=== PATIENT | female | born 1945 | race Two or more races ===

== ENCOUNTER 2025-01-23 15:46 | Inpatient (IN) | payer OTHER ==
[~2025-01-23] VITALS: Ht 152.4 cm; Wt 54.7 kg
[~2025-01-23 15:46] MED LIST: AMLO1TAB22 PO; ATOR20TA50 PO; CLOP75TA70 PO; DAPA1TAB4 PO; GABA-1250 PO; LOSA-534 PO; METF-372 PO; TIRZ2.5I SC
--- NOTE | 2025-01-23 16:28 | ED.PDOC ---
History of Present Illness HPI Comments Ms. Kelly is 79-year-old female with hypertension, diabetes mellitus type 2 for the past 20 years, sick sinus syndrome status post Medtronic pacemaker 2019, paroxysmal AFib status post watchman device 07/2024 who presented to the ER with a chief complaint of chest pain and shortness of breaths for 1 day. Patient has started experiencing left-sided chest pain yesterday while she was walking at home, pressure type, intensity 10/10, nonradiating, associated with sweating, shortness for breath. Also reports shortness of breath for the past 2 weeks on exertion but denies paroxysmal nocturnal dyspnea. She moved from [facility] recently. Switching her employee relations advisor or Dr. Vasquez On arrival to the ER, patient denied chest pain at this time. Blood pressure 116/8 systolic. Bilateral lower extremity pitting edema noted and bilateral crackles heard on auscultation. Past medical history:hypertension, diabetes mellitus type 2 for the past 20 years, sick sinus syndrome status post Medtronic pacemaker 2020, watchman device 07/2024 Home medications: Losartan 50, aspirin Ativan, gabapentin 300 t.i.d., atorvastatin 20, metformin, Farxiga Chief Complaint: Chest Pain Time Seen by MD: 15:48 Allergies: Coded Allergies: NO KNOWN ALLERGIES (Unverified , 01/23/25) Mode of Arrival: Ambulatory Past Medical History PAST MEDICAL HISTORY: DM, High Lipids, HTN Constitutional: reports: diaphoresis EENTM: denies: blurred vision, double vision, ear bleeding, ear discharge, ear drainage, ear pain, ear ringing, eye pain, eye redness, hearing loss, mouth pain, mouth swelling, nasal discharge, nose bleeding, nose congestion, nose pain, photophobia, tearing, throat pain, throat swelling, voice changes, others Respiratory: reports: shortness of breath, SOB with excertion Cardiovascular: reports: chest pain, Dyspnea on exertion, edema Gastrointestinal: denies: abdomen distended, abdominal pain, blood streaked bowels, constipated, diarrhea, dysphagia, difficulty swallowing, hematemesis, melena, nausea, poor appetite, poor fluid intake, rectal bleeding, rectal pain, vomiting, others Genitourinary: denies: abnormal vagina bleeding, burning, dyspareunia, dysuria, flank pain, frequency, hematuria, incontinence, pain, , vagina discharge, urgency, others Neurological: denies: dizziness, fainting, headache, left sided numbness, left sided weakness, numbness, paresthesia, pre-existing deficit, right sided numbness, right sided weakness, seizure, speech problems, tingling, tremors, weakness, others Musculoskeletal: denies: back pain, gout, joint pain, joint swelling, muscle pain, muscle stiffness, neck pain, others Integumetry: denies: bruises, change in color, change in hair/nails, dryness, laceration, lesions, lumps, rash, wounds, others Allergic/Immunocompromised: denies: Difficulty Healing, Frequent Infections, Hives, Itching, others Hematologic/Lymphatic: denies: anemia, blood clots, easy bleeding, easy bruising, swollen glands, others Endocrine: denies: excessive hunger, excessive sweating, excessive thirst, excessive urination, flushing, intolerance to cold, intolerance to heat, unexplained weight gain, unexplained weight loss, others Psychiatric: denies: anxiety, bipolar disorder, depression, hopeless, panic disorder, schizophrenia, sleepless, suicidal, others Physical Exam General Appearance: No Apparent Distress, Normal HEENT: Normal ENT Inspection, Pharynx Normal, TMs Normal Neck: Full Range of Motion, Non-Tender, Normal, Normal Inspection Respiratory: Decreased Breath Sounds Cardiovascular: Gallop/S3, No JVD, No Murmur, Normal Peripheral Pulses, Regular Rate/Rhythm Breast Exam: Deferred Gastrointestinal: No Organomegaly, Non Tender, No Pulsatile Mass, Normal Bowel Sounds, Soft Genitalia: Deferred Pelvic: Deferred Rectal: Deferred Extremities: No calf tenderness, Normal capillary refill, Normal inspection, Normal range of motion, Non-tender, No pedal edema Neurologic: Alert, manager helpdesk II-XII nml as Tested, No Motor Deficits, Normal Affect, Normal Mood, No Sensory Deficits Cerebellar Function: Normal Reflexes: Normal Skin: Dry, Normal Color, Warm Lymphatic: No Adenopathy Was a procedure done? Was a procedure done?: No EKG EKG : Comments irregular with vent rhythm Differential Dx Considerations may include: ACS/musculoskeletal chest pain/pericarditis/CHF X-Ray, Labs, Meds, VS Vital Signs Date Time Temp Pulse Resp B/P (MAP) Pulse Ox O2 Delivery O2 Flow Rate FiO2 01/23/25 19:33 168/83 9/23/25 17:03 158/78 01/23/25 16:49 60 01/23/25 15:51 98.2 67 18 168/166 94 98.2 Lab Test 01/23/25 18:00 01/23/25 16:23 Range/Units Troponin I High Sensitivity 72 *H 80 *H </=34 ng/L White Blood Count 7.0 4.4-10.8 10^3/uL Red Blood Count 3.99 L 4.0-5.20 10^6/uL Hemoglobin 10.2 L 12.2-16.2 g/dL Hematocrit 32.0 L 36.0-46.0 % Mean Corpuscular Volume 80.2 80.0-100.0 fL Mean Corpuscular Hemoglobin 25.5 L 28.0-32.0 pg Mean Corpuscular Hemoglobin Concent 31.8 L 32.0-36.0 g/dL Red Cell Distribution Width 16.3 H 11.8-14.3 % Platelet Count 289 140-450 10^3/uL Mean Platelet Volume 8.4 6.9-10.8 fL Neutrophils (%) (Auto) 72.7 37.0-80.0 % Lymphocytes (%) (Auto) 16.8 10.0-50.0 % Monocytes (%) (Auto) 8.2 0.0-12.0 % Eosinophils (%) (Auto) 1.6 0.0-7.0 % Basophils (%) (Auto) 0.7 0.0-2.0 % Neutrophils # (Auto) 5.1 1.6-8.6 10 ^3/uL Lymphocytes # (Auto) 1.2 0.4-5.4 10 ^3/uL Monocytes # (Auto) 0.6 0-1.3 10 ^3/uL Eosinophils # (Auto) 0.1 0-0.8 10 ^3/uL Basophils # (Auto) 0 0-0.2 10 ^3/uL Nucleated Red Blood Cells 0.0 % Sodium Level 139 136-145 mmol/L Potassium Level 4.5 3.5-5.1 mmol/L Chloride Level 103 98-107 mmol/L Carbon Dioxide Level 27 20-31 mmol/L Anion Gap 9 5-15 Blood Urea Nitrogen 13 9-23 mg/dL Creatinine 1.00 0.550-1.02 mg/dL Glomerular Filtration Rate Calc 57 >90 mL/min BUN/Creatinine Ratio 13.0 10.0-20.0 Serum Glucose 181 H 74-106 mg/dL Calcium Level 9.3 8.7-10.4 mg/dL B-Type Natriuretic Peptide 780.26 0-100 pg/mL Current Medications Medications (Trade) Dose Ordered Sig/Lisa Route Start Time Stop Time Status Last Admin Aspirin 81 mg ONCE ONCE PO 01/23/25 16:15 01/23/25 16:34 DC 01/23/25 17:04 Atorvastatin Calcium (Lipitor) 40 mg ONCE ONCE PO 01/23/25 16:15 01/23/25 16:34 DC 01/23/25 17:04 Clonidine HCl (Catapres Tablet) 0.1 mg ONCE ONCE PO 01/23/25 16:15 01/23/25 16:34 DC 01/23/25 17:03 Time of 1ST Reevaluation: 17:10 Reevaluation 1ST: Unchanged Patient Education/Counseling: Diagnosis, Treatment, Need For Follow Up Family Education/Counseling: Treatment, Need For Follow Up SEPSIS Sepsis Screen Date sepsis recognized/suspect: Jan 23, 2025 Time Sepsis recognized/suspect: 1547 Recent Procedure: No On Antibiotic Therapy: No Respiratory Rate >20: No Heart Rate >90: No Temp<36 C (96.8 F) or >38.3 C: No SBP <90 or MAP <65 mmHG: No New Acute Mental Status Change: No Is the patient on CPAP, BIPAP,: Yes Physician Orders Electrocardigram (01/23/25 16:00) Electrocardigram (01/23/25 17:00) Electrocardigram (01/23/25 19:00) Chest Xray 1 View (01/23/25 16:12) Troponin-I Hs (01/23/25 19:12) Command And Control Systems Integrator (01/23/25 ) Communication Order (01/23/25 16:49) Echo 2d Mode Cardiac Dop (01/23/25 17:14) Strict I & O QSHIFT (01/23/25 17:14) Cardiac Diet-2gna,Lofat,Lochol (01/23/25 Dinner) Aspirin Tablet (01/24/25 10:00) Atorvastatin (Lipitor) (01/23/25 22:00) Losartan Tablet (Cozaar Tablet) (01/24/25 10:00) Gabapentin Capsule (Neurontin Capsule) (01/23/25 22:00) Amlodipine Tablet (Norvasc Tablet) (01/24/25 10:00) Furosemide Tablet (Lasix Tablet) (01/24/25 10:00) Clopidogrel Bisulfate (Plavix) (01/24/25 10:00) * Cardiology Consult (01/23/25 19:35) Basic Metabolic Panel (01/24/25 04:00) Glucose Blood (Accu-Chek Comfort Curve T (01/23/25 22:00) Mild Sliding Scale (01/23/25 22:00) Dextrose 50% Syringe (01/23/25 19:45) Admit (01/23/25 19:35) Ondansetron Hcl (Zofran) (01/23/25 19:45) Enoxaparin Sodium (Lovenox) (01/24/25 10:00) Condition: Fair (01/23/25 19:35) Acetaminophen Tablet (Tylenol Tablet) (01/23/25 19:45) Bedrest With Bathroom Privileg (01/23/25 19:35) Nitroglycerin Sublingual (Ntrostat Subli (01/23/25 19:45) Morphine Sulfate Injection (01/23/25 19:45) Stat Ekg For Chest Pain (01/23/25 19:35) Notify Md Of Changes From Base (01/23/25 19:35) Studio Camera Operator For 24 Hours (01/23/25 19:35) Emergency Dysrhythmia Protocol (01/23/25 19:35) Rhythm Strips Once Every Shift (01/23/25 19:35) Oxygen By Nasal Cannula (01/23/25 19:35) Pumper Gauger Apprentice To Assess Pacemaker (01/23/25 19:40) Vital Signs Date Time Temp Pulse Resp B/P (MAP) Pulse Ox O2 Delivery O2 Flow Rate FiO2 01/23/25 19:33 168/83 01/23/25 17:03 158/78 01/23/25 16:49 60 01/23/25 15:51 98.2 67 18 168/166 94 98.2 Laboratory Tests Test 01/23/25 16:23 White Blood Count 7.0 10^3/uL (4.4-10.8) Medications Medications Dose Ordered Sig/Lisa Route Start Time Stop Time Status Last Admin Dose Admin Aspirin 81 mg ONCE ONCE PO 01/23/25 16:15 01/23/25 16:34 DC 01/23/25 17:04 Atorvastatin Calcium 40 mg ONCE ONCE PO 01/23/25 16:15 01/23/25 16:34 DC 01/23/25 17:04 Clonidine HCl 0.1 mg ONCE ONCE PO 01/23/25 16:15 01/23/25 16:34 DC 01/23/25 17:03 Departure 1 Departure Time of Disposition: 17:10 Impression: Primary Impression: Chest pain Additional Impression: Congestive heart failure Disposition: 30 STILL A PATIENT Admit to: Tele Condition: Fair Critical Care Note Critical Care Time?: No Stability Stability form required: SARAH Holloway RESIDENT Jan 23, 2025 16:28
[2025-01-23 16:34] LABS: Hematocrit 32.0 % (36.0-46.0); Hemoglobin 10.2 g/dL (12.2-16.2); Mean Corpuscular Hemoglobin 25.5 pg (28.0-32.0); Mean Corpuscular Volume 80.2 fL (80.0-100.0); Nucleated Red Blood Cells % 0.0 %
[2025-01-23 16:38] LABS: Chloride 103 mmol/L (98-107); Potassium 4.5 mmol/L (3.5-5.1); Sodium 139 mmol/L (136-145)
[2025-01-23 16:39] LABS: Anion Gap 9 (5-15); Carbon Dioxide 27 mmol/L (20-31)
[2025-01-23 16:40] LABS: Calcium 9.3 mg/dL (8.7-10.4)
[2025-01-23 16:44] LABS: BUN/Creatinine Ratio 13.0 (10.0-20.0); Blood Urea Nitrogen 13 mg/dL (9-23)
[2025-01-23 16:45] LABS: Glucose 181 mg/dL (74-106)
--- NOTE | 2025-01-23 16:52 | DVH ---
CHEST RADIOGRAPH Indication: b/l lower crackles Technique: Single frontal view of the chest was obtained Comparison: None FINDINGS: The cardiac silhouette is enlarged. The lungs demonstrate perihilar airspace opacities. Bibasilar air space opacities. The pulmonary vasculature is prominent.. Small bilateral pleural effusions, right-gr [id number]. There is no pneumothorax. Cardiac recording device. Aortic atherosclerotic disease. Atrial septal occlusion device. IMPRESSION: As above
[2025-01-23] MEDS ORDERED: INSU300I SC (16:58)
[2025-01-23] MEDS: FUROSEMIDE 20 MG/2 ML VIAL IV ONE (17:00)
[2025-01-23] MEDS: ATORVASTATIN 20 MG TAB PO ONE (17:04)
[2025-01-23] MEDS ORDERED: ACETAMINOPHEN 325 MG TAB PO PRN (19:45)
[2025-01-23] MEDS ORDERED: DEXTROSE (50%) 50ML SYRG IV PRN (19:45)
[2025-01-23] MEDS ORDERED: ONDANSETRON HCL 4 MG/2 ML VIAL IV PRN (19:45)
[2025-01-23] MEDS ORDERED: MORPHINE SULFATE INJ 2 MG/ml SYRG IV PRN (19:45)
[2025-01-23] MEDS ORDERED: NITROGLYCERIN 0.4 MG SL TAB SL PRN (19:45)
[2025-01-23 20:39] VITALS: PULSE 60; RESP 18; O2SAT 97
[2025-01-23] MEDS: ATORVASTATIN 20 MG TAB PO SCH (21:13)
[2025-01-23] MEDS: GABAPENTIN 300 MG CAP PO SCH (21:14)
[2025-01-23] MEDS: ACCU-CHEK COMFORT CURVE STRIP VI SCH (21:14)
[2025-01-23] MEDS: InsuLIN REG 1unit/0.01ml Soln (100units/ml) SC SCH (21:16)
--- NOTE | 2025-01-23 21:47 | DVHHP2 ---
History of Present Illness Reason for Visit: Shortness for breath History of Present Illness 79-year-old female presents for evaluation of shortness for breath. Patient reports a two week history of worsening shortness for breath. She states over the past two days she developed substernal dull/pressure-like nonradiating chest pain. Denies nausea or vomiting. No other acute complaints reported. Past Medical History Sick sinus rhythm, hypertension, dyslipidemia, diabetes mellitus Past Surgical History Pacemaker Family History Noncontributory Smoke: No ALCOHOL: none Drugs: None Lives: with Family Review of Systems Review of Systems Review of systems are currently negative otherwise addressed in HPI. Allergies: Coded Allergies: NO KNOWN ALLERGIES (Unverified , 01/23/25) Medications Current Medications Medications Dose Ordered Sig/Lisa Route Start Time Stop Time Status Last Admin Dose Admin Aspirin 162 mg DAILY PO 01/24/25 10:00 Atorvastatin Calcium 40 mg HS PO 01/23/25 22:00 01/23/25 21:13 40 MG Losartan Potassium 50 mg DAILY PO 01/24/25 10:00 Gabapentin 300 mg BID PO 01/23/25 22:00 01/23/25 21:14 300 MG Amlodipine Besylate 5 mg DAILY PO 01/24/25 10:00 Furosemide 40 mg DAILY PO 01/24/25 10:00 Clopidogrel Bisulfate 75 mg DAILY PO 01/24/25 10:00 Diagnostic Test (Pha) 1 strip ACHS 01/23/25 22:00 01/23/25 21:14 1 STRIP Insulin Human Regular ACHS SC 01/23/25 22:00 01/23/25 21:16 4 UNITS Dextrose 50 ml UD PRN IV 01/23/25 19:45 Ondansetron HCl 4 mg Q4HP PRN IV 01/23/25 19:45 Enoxaparin Sodium 40 mg DAILY SC 01/24/25 10:00 Acetaminophen 650 mg Q6HP PRN PO 01/23/25 19:45 Nitroglycerin 0.4 mg Q5MINP PRN SL 01/23/25 19:45 Morphine Sulfate 2 mg Q30M PRN IV 01/23/25 19:45 Exam Vital Signs Vital Signs Date Time Temp Pulse Resp B/P (MAP) Pulse Ox O2 Delivery O2 Flow Rate FiO2 01/23/25 20:39 60 18 97 Room Air* 0 21 01/23/25 19:33 168/83 01/23/25 15:51 98.2 98.2 Exam Gen: 79-year-old female in mild distress Skin: Warm, dry, normal color and texture, no rash. HEENT: Normocephalic atraumatic, mucous membranes moist and pink. Neck: Cervical and supraclavicular nodes normal without enlargement, trachea is midline, thyroid gland is normal without masses. Pulmonary: Clear to auscultation and percussion bilaterally. Cardiac: Regular rate and rhythm. No murmur Abdomen: Soft, nontender, nondistended, bowel sounds present all 4 quadrants, no guarding, no rigidity, no organomegaly. Extremities: No cyanosis, clubbing, no edema Neuro: Cranial nerves II through XII grossly intact, normal affect and speech, no focal motor deficits. Labs/Xrays ORDERING PHYSICIAN: SARAH MARX RESIDENT PROCEDURE(s): CXR1 - CHEST XRAY 1 VIEW REASON: b/l lower crackles ORDER NUMBER(s): [id number], ACCESSION NUMBER(s): [id number] CHEST RADIOGRAPH Indication: b/l lower crackles Technique: Single frontal view of the chest was obtained Comparison: None FINDINGS: The cardiac silhouette is enlarged. The lungs demonstrate perihilar airspace opacities. Bibasilar airspace opacities. The pulmonary vasculature is prominent.. Small bilateral pleural effusions, [id number]. There is no pneumothorax. Cardiac recording device. Aortic atherosclerotic disease. Atrial septal occlusion device. IMPRESSION: As above ATED BY: JACKIE BASHIR MD Labs Test 01/23/25 19:36 01/23/25 16:23 Range/Units Troponin I High Sensitivity 74 *H </=34 ng/L White Blood Count 7.0 4.4-10.8 10^3/uL Red Blood Count 3.99 L 4.0-5.20 10^6/uL Hemoglobin 10.2 L 12.2-16.2 g/dL Hematocrit 32.0 L 36.0-46.0 % Mean Corpuscular Volume 80.2 80.0-100.0 fL Mean Corpuscular Hemoglobin 25.5 L 28.0-32.0 pg Mean Corpuscular Hemoglobin Concent 31.8 L 32.0-36.0 g/dL Red Cell Distribution Width 16.3 H 11.8-14.3 % Platelet Count 289 140-450 10^3/uL Mean Platelet Volume 8.4 6.9-10.8 fL Neutrophils (%) (Auto) 72.7 37.0-80.0 % Lymphocytes (%) (Auto) 16.8 10.0-50.0 % Monocytes (%) (Auto) 8.2 0.0-12.0 % Eosinophils (%) (Auto) 1.6 0.0-7.0 % Basophils (%) (Auto) 0.7 0.0-2.0 % Neutrophils # (Auto) 5.1 1.6-8.6 10 ^3/uL Lymphocytes # (Auto) 1.2 0.4-5.4 10 ^3/uL Monocytes # (Auto) 0.6 0-1.3 10 ^3/uL Eosinophils # (Auto) 0.1 0-0.8 10 ^3/uL Basophils # (Auto) 0 0-0.2 10 ^3/uL Nucleated Red Blood Cells 0.0 % Sodium Level 139 136-145 mmol/L Potassium Level 4.5 3.5-5.1 mmol/L Chloride Level 103 98-107 mmol/L Carbon Dioxide Level 27 20-31 mmol/L Anion Gap 9 5-15 Blood Urea Nitrogen 13 9-23 mg/dL Creatinine 1.00 0.550-1.02 mg/dL Glomerular Filtration Rate Calc 57 >90 mL/min BUN/Creatinine Ratio 13.0 10.0-20.0 Serum Glucose 181 H 74-106 mg/dL Calcium Level 9.3 8.7-10.4 mg/dL B-Type Natriuretic Peptide 780.26 0-100 pg/mL SEPSIS Sepsis Screen Date sepsis recognized/suspect: Jan 23, 2025 Time Sepsis recognized/suspect: 2043 Recent Procedure: No On Antibiotic Therapy: No Respiratory Rate >20: No Heart Rate >90: No Temp<36 C (96.8 F) or >38.3 C: No SBP <90 or MAP <65 mmHG: No New Acute Mental Status Change: No Is the patient on CPAP, BIPAP,: No Physician Orders Electrocardigram (01/23/25 16:00) Electrocardigram (01/23/25 17:00) Electrocardigram (01/23/25 19:00) Chest Xray 1 View (01/23/25 16:12) Finance Executive (01/23/25 ) Communication Order (01/23/25 16:49) Echo 2d Mode Cardiac Dop (01/23/25 17:14) Strict I & O QSHIFT (01/23/25 17:14) Cardiac Diet-2gna,Lofat,Lochol (01/23/25 Dinner) Aspirin Tablet (01/24/25 10:00) Atorvastatin (Lipitor) (01/23/25 22:00) Losartan Tablet (Cozaar Tablet) (01/24/25 10:00) Gabapentin Capsule (Neurontin Capsule) (01/23/25 22:00) Amlodipine Tablet (Norvasc Tablet) (01/24/25 10:00) Furosemide Tablet (Lasix Tablet) (01/24/25 10:00) Clopidogrel Bisulfate (Plavix) (01/24/25 10:00) * Cardiology Consult (01/23/25 19:35) Basic Metabolic Panel (01/24/25 04:00) Glucose Blood (Accu-Chek Comfort Curve T (01/23/25 22:00) Insulin R (Human) (Insulin R) (01/23/25 22:00) Dextrose 50% Syringe (01/23/25 19:45) Admit (01/23/25 19:35) Ondansetron Hcl (Zofran) (01/23/25 19:45) Enoxaparin Sodium (Lovenox) (01/24/25 10:00) Condition: Fair (01/23/25 19:35) Acetaminophen Tablet (Tylenol Tablet) (01/23/25 19:45) Bedrest With Bathroom Privileg (01/23/25 19:35) Nitroglycerin Sublingual (Ntrostat Subli (01/23/25 19:45) Morphine Sulfate Injection (01/23/25 19:45) Stat Ekg For Chest Pain (01/23/25 19:35) Notify Md Of Changes From Base (01/23/25 19:35) Leasing Consultant For 24 Hours (01/23/25 19:35) Emergency Dysrhythmia Protocol (01/23/25 19:35) Rhythm Strips Once Every Shift (01/23/25 19:35) Oxygen By Nasal Cannula (01/23/25 19:35) Wind Site Manager To Assess Pacemaker (01/23/25 19:40) Vital Signs Date Time Temp Pulse Resp B/P (MAP) Pulse Ox O2 Delivery O2 Flow Rate FiO2 01/23/25 20:39 60 18 97 Room Air* 0 21 01/23/25 20:00 64 01/23/25 19:33 168/83 01/23/25 17:03 158/78 01/23/25 17:00 153/58 01/23/25 16:49 60 01/23/25 15:51 98.2 67 18 168/166 94 98.2 Laboratory Tests Test 01/23/25 16:23 White Blood Count 7.0 10^3/uL (4.4-10.8) Medications Medications Dose Ordered Sig/Lisa Route Start Time Stop Time Status Last Admin Dose Admin Aspirin 81 mg ONCE ONCE PO 01/23/25 16:15 01/23/25 16:34 DC 01/23/25 17:04 81 MG Atorvastatin Calcium 40 mg HS PO 01/23/25 22:00 01/23/25 21:13 40 MG Atorvastatin Calcium 40 mg ONCE ONCE PO 01/23/25 16:15 01/23/25 16:34 DC 01/23/25 17:04 40 MG Clonidine HCl 0.1 mg ONCE ONCE PO 01/23/25 16:15 01/23/25 16:34 DC 01/23/25 17:03 0.1 MG Diagnostic Test (Pha) 1 strip ACHS 01/23/25 22:00 01/23/25 21:14 1 STRIP Furosemide 20 mg ONCE ONCE IV 01/23/25 17:00 01/23/25 17:03 DC 01/23/25 17:00 20 MG Gabapentin 300 mg BID PO 01/23/25 22:00 01/23/25 21:14 300 MG Insulin Human Regular ACHS SC 01/23/25 22:00 01/23/25 21:16 4 UNITS Assessment/Plan Assessment/Plan Assessment Chest pain Congestive heart failure Diabetes mellitus Hypertension Plan Admit the patient to telemetry to the hospitalist Cardiology consultation Resume home medications Continue treatment per orders. Plan discussed with: Patient My Orders Orders - MAHNAZ MAYA [email or web address] Procedure Category Date Status Time Aspirin Tablet PHA 01/24/25 In Process 10:00 Atorvastatin (Lipitor) PHA 01/23/25 In Process 22:00 Losartan Tablet PHA 01/24/25 In Process (Cozaar Tablet) 10:00 Gabapentin Capsule PHA 01/23/25 In Process (Neurontin Capsule) 22:00 Amlodipine Tablet PHA 01/24/25 In Process (Norvasc Tablet) 10:00 Furosemide Tablet PHA 01/24/25 In Process (Lasix Tablet) 10:00 Clopidogrel Bisulfate PHA 01/24/25 In Process (Plavix) 10:00 * Cardiology Consult CONS 01/23/25 Transmitted 19:35 Basic Metabolic Panel LAB 01/24/25 Verified 04:00 Glucose Blood PHA 01/23/25 In Process (Accu-Chek Comfort 22:00 Insulin R (Human) PHA 01/23/25 In Process (Insulin R) 22:00 Dextrose 50% Syringe PHA 01/23/25 In Process 19:45 Admit ADMIT 01/23/25 Transmitted 19:35 Ondansetron Hcl PHA 01/23/25 In Process (Zofran) 19:45 Enoxaparin Sodium PHA 01/24/25 In Process (Lovenox) 10:00 Condition: Fair [facility] 01/23/25 In Process 19:35 Acetaminophen Tablet PHA 01/23/25 In Process (Tylenol Tablet) 19:45 Bedrest With Bathroom [facility] 01/23/25 In Process Privileg 19:[address] [facility] 01/23/25 In Process Sublingual (Ntrostat 19:45 Morphine Sulfate PHA 01/23/25 In Process Injection 19:45 Stat Ekg For Chest [facility] 01/23/25 In Process Pain 19:35 Notify Md Of Changes [facility] 01/23/25 In Process From Base 19:35 Leasing Consultant For [facility] 01/23/25 In Process 24 Hours 19:35 Emergency Dysrhythmia [facility] 01/23/25 In Process Protocol 19:35 Rhythm Strips Once [facility] 01/23/25 In Process Every Shift 19:35 Oxygen By Nasal RT 01/23/25 Transmitted Cannula 19:35 Date of Service: Jan 23, 2025 Billing Provider: MAHNAZ MAYA Common Visit Codes: [id number] INP/OBS CARE (HIGH) MAHNAZ MAYA Jan 23, 2025 21:46
[2025-01-24] VITALS (10 sets, daily range): BP systolic 126–159; BP diastolic 70–83; PULSE 58–64; RESP 16–24; TEMP 97.6–98.4; O2SAT 92–97
[2025-01-24 05:53] LABS: Chloride 103 mmol/L (98-107); Sodium 141 mmol/L (136-145)
[2025-01-24 05:54] LABS: Anion Gap 10 (5-15); Calcium 9.1 mg/dL (8.7-10.4); Carbon Dioxide 28 mmol/L (20-31); Potassium 3.3 mmol/L (3.5-5.1)
[2025-01-24 05:59] LABS: BUN/Creatinine Ratio 12.6 (10.0-20.0); Blood Urea Nitrogen 12 mg/dL (9-23); Glucose 106 mg/dL (74-106)
[2025-01-24] MEDS: FUROSEMIDE 40 MG TAB PO SCH (10:18)
[2025-01-24] MEDS: CLOPIDOGREL BISULFATE 75 MG TAB PO SCH (10:19)
[2025-01-24] MEDS: LOSARTAN POTASSIUM 50 MG TAB PO SCH (10:19)
[2025-01-24] MEDS: ENOXAPARIN SOD 40 MG/0.4 ML SYRINGE SC SCH (10:20)
--- NOTE | 2025-01-24 10:59 | DVHINCON2 ---
Date Seen: Jan 24, 2025 Referring Physician MARK Bermudez Reason for Consultation CHF History of Present Illness Pleasant 79-year-old female who presented to the emergency room with a chief complaint of shortness of breath for one week. The patient complains of progressive shortness of breath associated with fatigue, OG, PND, wheezes nature and bilateral lower extremity edema. Denies chest pain, palpitations, diaphoresis, dizziness, or syncopal events. She underwent multiple 12 lead electrocardiogram revealing a ventricular paced rhythm with inferior nonprogressive T-wave inversion and underlying atrial flutter/atrial fibrillation rhythm. Troponin levels peaked at 80 ng/L. The patient is somewhat aware of her cardiac history and used to follow up with the primary cabin cleaner in [place], [place]. She is unsure if she ever underwent coronary work-up in the past. She moved to this area two months ago and is sche duled to establish care with Dr. Vasquez on /2025. Significant past medical history unspecified atrial fibrillation/atrial flutter on Plavix therapy status post Watchman device ([employer]) implanted on , presence of micra-leadless pacemaker implanted on 2019 ([employer]), hypertension, dyslipidemia, and insulin-dependent diabetes mellitus. Past Medical History Past medical history reviewed. No other significant than mentioned above. Past Surgical History Status post micra leadless pacemaker implantation, 2019 Watchman device implantation, Family History Family history reviewed. Social History Denies the use of illicit drugs, alcohol, or tobacco use. Allergies: Coded Allergies: NO KNOWN ALLERGIES (Unverified , 01/23/25) Home Meds Home medications reviewed. Current Medications Current Medications Medications (Trade) Dose Ordered Sig/Lisa Route PRN Reason Start Time Stop Time Status Last Admin Aspirin 162 mg DAILY PO 01/24/25 10:00 Atorvastatin Calcium (Lipitor) 40 mg HS PO 01/23/25 22:00 01/23/25 21:13 Losartan Potassium (Cozaar Tablet) 50 mg DAILY PO 01/24/25 10:00 Gabapentin (Neurontin Capsule) 300 mg BID PO 01/23/25 22:00 01/23/25 21:14 Amlodipine Besylate (Norvasc Tablet) 5 mg DAILY PO 01/24/25 10:00 Furosemide (Lasix Tablet) 40 mg DAILY PO 01/24/25 10:00 Clopidogrel Bisulfate (Plavix) 75 mg DAILY PO 01/24/25 10:00 Diagnostic Test (Pha) (Accu-Chek Comfort Curve T) 1 strip ACHS 01/23/25 22:00 01/24/25 06:20 Insulin Human Regular (InsuLIN R) ACHS SC 01/23/25 22:00 01/23/25 21:16 Dextrose 50 ml UD PRN IV Blood Sugar LESS THAN 60 01/23/25 19:45 Ondansetron HCl (Zofran) 4 mg Q4HP PRN IV NAUSEA / VOMITING 01/23/25 19:45 Enoxaparin Sodium (Lovenox) 40 mg DAILY SC 01/24/25 10:00 Acetaminophen (Tylenol Tablet) 650 mg Q6HP PRN PO PAIN SCALE 1-3 OR TEMP>100.4 01/23/25 19:45 Nitroglycerin (Ntrostat Sublingual) 0.4 mg Q5MINP PRN SL FOR CHEST PAIN 01/23/25 19:45 Morphine Sulfate 2 mg Q30M PRN IV FOR CHEST PAIN 01/23/25 19:45 Review of Systems Constitutional: No symptom reported Ears, Nose, & Throat: No symptom reported Eyes: No symptom reported Neurological: No symptoms reported Pulmonary/Respiratory: SOB, OG, PND Cardiovascular: BLE edema Gastrointestinal: No symptom reported Genitourinary: No symptom reported Musculoskeletal: No symptom reported Skin: No symptom reported Psychiatric: No symptom reported Endocrine: No symptom reported Hemotologic/Lymphatic: No symptom reported Vital Signs Vital Signs Date Time Temp Pulse Resp B/P (MAP) Pulse Ox O2 Delivery O2 Flow Rate FiO2 01/24/25 09:00 97.6 58 16 128/70 (89) 95 97.6 01/24/25 04:36 Room Air* 0 21 Physical Exam General Appearance: Cooperative. Well developed. Well nourished. In no acute distress Head Exam: Normal inspection Neck Exam: Normal inspection. Non-tender. Normal alignment Pulmonary/Respiratory: Chest non-tender. Posterior bilateral breath sounds Cardiovascular/Chest: Irregularly irregular rate and rhythm. Ventricular paced rhythm with underlying AFib/a flutter. No murmurs. No JVD. Peripheral Pulses: 2+ Radial (R). 2+ Radial (L). 2+ Pedal (R). 2+ Pedal (L) Abdominal Exam: Normal bowel sounds. Soft. Nontender. No hepatospenomegaly. No masses Ankle Exam: Positive ankle edema, nonpitting Lower extremities: Positive lower extremity edema, nonpitting Neuro/Mental Status: A&O x4. Coherent Thoughts/Psych: Normal thought pattern. Appropriate mood and affect. Good judgement and insight Appearance: In no acute distress Skin Exam: Normal inspection. Normal color. Warm. Dry Labs/Diagnostic Data Labs Test 01/24/25 05:29 01/24/25 05:09 01/23/25 19:36 01/23/25 16:23 Range/Units Sodium Level 141 136-145 mmol/L Potassium Level 3.3 L 3.5-5.1 mmol/L Chloride Level 103 98-107 mmol/L Carbon Dioxide Level 28 20-31 mmol/L Anion Gap 10 5-15 Blood Urea Nitrogen 12 9-23 mg/dL Creatinine 0.95 0.550-1.02 mg/dL Glomerular Filtration Rate Calc 60 >90 mL/min BUN/Creatinine Ratio 12.6 10.0-20.0 Serum Glucose 106 74-106 mg/dL Calcium Level 9.1 8.7-10.4 mg/dL POC Glucose 102 70-106 mg/dl Troponin I High Sensitivity 74 *H </=34 ng/L White Blood Count 7.0 4.4-10.8 10^3/uL Red Blood Count 3.99 L 4.0-5.20 10^6/uL Hemoglobin 10.2 L 12.2-16.2 g/dL Hematocrit 32.0 L 36.0-46.0 % Mean Corpuscular Volume 80.2 80.0-100.0 fL Mean Corpuscular Hemoglobin 25.5 L 28.0-32.0 pg Mean Corpuscular Hemoglobin Concent 31.8 L 32.0-36.0 g/dL Red Cell Distribution Width 16.3 H 11.8-14.3 % Platelet Count 289 140-450 10^3/uL Mean Platelet Volume 8.4 6.9-10.8 fL Neutrophils (%) (Auto) 72.7 37.0-80.0 % Lymphocytes (%) (Auto) 16.8 10.0-50.0 % Monocytes (%) (Auto) 8.2 0.0-12.0 % Eosinophils (%) (Auto) 1.6 0.0-7.0 % Basophils (%) (Auto) 0.7 0.0-2.0 % Neutrophils # (Auto) 5.1 1.6-8.6 10 ^3/uL Lymphocytes # (Auto) 1.2 0.4-5.4 10 ^3/uL Monocytes # (Auto) 0.6 0-1.3 10 ^3/uL Eosinophils # (Auto) 0.1 0-0.8 10 ^3/uL Basophils # (Auto) 0 0-0.2 10 ^3/uL Nucleated Red Blood Cells 0.0 % B-Type Natriuretic Peptide 780.26 0-100 pg/mL Assessment De Michael decompensated unspecified HF, NYHA Class III NSTEMI, likely type 2 secondary to above Presence of micra leadless pacemaker ([employer]) Status post Watchman device implantation ([employer]) Unspecified atrial fibrillation/atrial flutter, controlled rate (on Plavix therapy) Hypertension Dyslipidemia Insulin-dependent diabetes mellitus Plan/Recommendation (Dr. Lara) We will continue further cardiac evaluation with a transthoracic echocardiogram to rule out structural heart disease. In the meantime, initiate GDMT for unspecified HF and titrate as tolerated. Initiate preload and afterload reduction including strict I&Os, daily weight, fluid restrictions. Continue single-antiplatelet therapy given history of A-fib/A-flutter status post watchman device implantation. Agree with DVT/VTE prophylaxis. Monitor ECG valle ges closely and notify. Thank you for allowing us to participate in this patient's care. Please call if you have any questions or concerns. This medical document was created using an electronic medical record system with voice recognition software and computerized dictation system. Although this document has been carefully reviewed, there might still be some phonetic and typographical errors. Occasional wrong-word or ``sound-alike substitutions may have occurred due to the inherent limitations of voice recognition software. These areas are purely typographical due to imperfections of the software programs and do not reflect any compromise in the patient's medical care. Please read the chart carefully and recognize, using context, where these substitutions have occurred. Plan discussed with: Patient, Other NYHA Physical activity limitations: Class3(Marked) ordinary Date of Service: Jan 24, 2025 Billing Provider: HIEU ANN RECEIVING CHECKER Cardiology Common Codes: [id number] INP/OBS CARE (High) HIEU ANN [facility] Jan 24, 2025 10:59
[2025-01-24] MEDS: FUROSEMIDE 40 MG/4 ML VIAL IV ONE (12:56)
[2025-01-24 13:47] LABS: Magnesium 1.7 mg/dL (1.6-2.6)
--- NOTE | 2025-01-24 13:47 | DVHPN2 ---
Reviewed: Care Plan, H&P, Labs, Medications, Previous Orders, Radiology Changes from previous H/P or p: No Changes Objective Vitals Vital Signs Date Time Temp Pulse Resp B/P (MAP) Pulse Ox O2 Delivery O2 Flow Rate FiO2 01/24/25 12:56 156/82 01/24/25 09:00 97.6 58 16 95 97.6 01/24/25 08:00 Room Air* 0 21 Intake/Output Intake and Output 01/24/25 07:00 Intake Total 0 ml Balance 0 ml Intake Oral 0 ml Medications Current Medications Medications Dose Ordered Sig/Lisa Route Start Time Stop Time Status Last Admin Dose Admin Aspirin 162 mg DAILY PO 01/24/25 10:00 01/24/25 10:19 162 MG Atorvastatin Calcium 40 mg HS PO 01/23/25 22:00 01/23/25 21:13 40 MG Losartan Potassium 50 mg DAILY PO 01/24/25 10:00 01/24/25 10:19 50 MG Gabapentin 300 mg BID PO 01/23/25 22:00 01/24/25 10:19 300 MG Clopidogrel Bisulfate 75 mg DAILY PO 01/24/25 10:00 01/24/25 10:19 75 MG Diagnostic Test (Pha) 1 strip ACHS 01/23/25 22:00 01/24/25 11:53 1 STRIP Insulin Human Regular ACHS SC 01/23/25 22:00 01/24/25 11:53 3 UNITS Dextrose 50 ml UD PRN IV 01/23/25 19:45 Ondansetron HCl 4 mg Q4HP PRN IV 01/23/25 19:45 Enoxaparin Sodium 40 mg DAILY SC 01/24/25 10:00 01/24/25 10:20 40 MG Acetaminophen 650 mg Q6HP PRN PO 01/23/25 19:45 Nitroglycerin 0.4 mg Q5MINP PRN SL 01/23/25 19:45 Morphine Sulfate 2 mg Q30M PRN IV 01/23/25 19:45 Furosemide 40 mg BIDD IV 01/24/25 18:00 Empaglifozin 10 mg DAILY PO 01/25/25 10:00 Metoprolol Succinate 25 mg DAILY PO 01/25/25 10:00 Laboratory Results Laboratory Tests 01/23/25 16:23 01/24/25 05:29 Chemistry Test 01/23/25 16:23 01/24/25 05:29 Calcium Level 9.3 mg/dL (8.7-10.4) 9.1 mg/dL (8.7-10.4) Magnesium Level Pending Lipid panel Test 01/24/25 05:29 Cholesterol Level Pending HDL Cholesterol Pending Triglycerides Level Pending Cardiac Markers Test 01/23/25 16:23 B-Type Natriuretic Peptide 780.26 pg/mL (0-100) HgA1c, TSH Test 01/24/25 05:29 Hemoglobin A1c Pending Thyroid Stimulating Hormone (TSH) Pending Labs and/or images reviewed: Labs reviewed by me, Image(s) reviewed by me Assessment/Plan Assessment/Plan Unspecified congestive heart failure time: Consult by Oral Hygienist Dr. Lara appreciated NSTEMI, likely type 2 secondary to above Presence of micra leadless pacemaker ([employer]) Status post Watchman device implantation ([employer]) Unspecified atrial fibrillation/atrial flutter, controlled rate (on Plavix therapy) Hypertension Dyslipidemia Insulin-dependent diabetes: Insulin sliding scale Time spent 65 minutes Advanced care planning time 20 minutes Patient is full code Plan discussed with: Patient Date of Service: Jan 24, 2025 Billing Provider: ANDREW ORTIZ MD Common Visit Codes: [id number] CARE 30-74 MIN ANDREW ORTIZ MD Jan 24, 2025 13:47
[2025-01-24 14:45] LABS: Triglycerides 69.0 mg/dL (< 150)
[2025-01-24 14:47] LABS: Cholesterol 95.0 mg/dL (< 200); HDL Cholesterol 52.0 mg/dL (40-59)
[2025-01-24] MEDS: FUROSEMIDE 40 MG/4 ML VIAL IV SCH (18:35)
--- NOTE | 2025-01-24 18:59 | ECG ---
[facility] Test Date: 2025-01-23 Test Time: 15:53:09 Pat Name: DAVID ROLDAN Department: ED Room: 0277T Gender: F Linux Admin Engineer: amanda : 1945 Requested By: SARAH MARX Order Number: [id number] Reading MD: Measurements Intervals [place] Rate: 66 P: 0 [place]: 0 QRS: -2 QRSD: 102 T: 136 QT: 460 QTc: 482 Interpretive Statements Atrial fibrillation Anterior infarct, age indeterminate Please click the below link to view image of tracing.
[2025-01-25] VITALS (9 sets, daily range): BP systolic 122–148; BP diastolic 73–86; PULSE 60–104; RESP 17–22; TEMP 97.2–99.2; O2SAT 93–97
[2025-01-25 07:17] LABS: Hematocrit 32.5 % (36.0-46.0); Hemoglobin 10.9 g/dL (12.2-16.2); Mean Corpuscular Hemoglobin 26.2 pg (28.0-32.0); Mean Corpuscular Volume 78.0 fL (80.0-100.0); Nucleated Red Blood Cells % 0.0 %
[2025-01-25 07:29] LABS: Alanine Aminotransferase 29 U/L (7-40); Alkaline Phosphatase 109 U/L (46-116); Anion Gap 13 (5-15); Calcium 8.8 mg/dL (8.7-10.4); Carbon Dioxide 30 mmol/L (20-31)
[2025-01-25 07:30] LABS: BUN/Creatinine Ratio 18.7 (10.0-20.0); Blood Urea Nitrogen 20 mg/dL (9-23); Total Protein 7.1 g/dL (5.7-8.2)
[2025-01-25 07:31] LABS: Albumin 4.1 g/dL (3.2-4.8)
[2025-01-25 07:32] LABS: Bilirubin, Total 0.5 mg/dL (0.2-1.0)
[2025-01-25 07:36] LABS: Chloride 96 mmol/L (98-107); Glucose 114 mg/dL (74-106); Potassium 2.8 mmol/L (3.5-5.1); Sodium 139 mmol/L (136-145)
--- NOTE | 2025-01-25 08:08 | DVH ---
INDICATION: CHF TECHNIQUE: Single frontal view of the chest was obtained COMPARISON: XY CHEST XRAY 1 VIEW on DOS: 01/23/25, XY CHEST XRAY 1 VIEW on DOS: 01/23/25 FINDINGS: The cardiac silhouette is enlarged. The lungs demonstrate perihilar airspace opacities. Bibasilar air space opacities. The pulmonary vasculature is prominent.. Small bilateral pleural effusions, right-gr [id number]. There is no pneumothorax. Cardiac recording device. Aortic atherosclerotic disease. Atrial septal occlusion device. IMPRESSION: As above
[2025-01-25] MEDS: POTASSIUM CHL 20 Meq TABLET PO ONE ×2 (10:06→14:13)
[2025-01-25] MEDS: EMPAGLIFLOZIN 10 MG TAB PO SCH (10:08)
[2025-01-25] MEDS: MAGNESIUM SULFATE 1GM/100ML 100 ML IV ONE (10:12)
[2025-01-25] MEDS: METOPROLOL SUCCINATE XL 50 MG TAB PO SCH (10:12)
--- NOTE | 2025-01-25 10:51 | DVHPN2 ---
Reviewed: Care Plan, H&P, Labs, Medications, Previous Orders, Radiology Changes from previous H/P or p: No Changes Objective Vitals Vital Signs Date Time Temp Pulse Resp B/P (MAP) Pulse Ox O2 Delivery O2 Flow Rate FiO2 01/25/25 10:12 69 115/80 01/25/25 08:28 98.4 17 97 98.4 01/24/25 20:00 Room Air* 0 21 Intake/Output Intake and Output 01/25/25 07:00 Intake Total 1850 ml Output Total 4700 ml Balance -2850 ml Intake Oral 1850 ml Output Urine Total 4700 ml Medications Current Medications Medications Dose Ordered Sig/Lisa Route Start Time Stop Time Status Last Admin Dose Admin Aspirin 162 mg DAILY PO 01/24/25 10:00 01/25/25 10:08 162 MG Atorvastatin Calcium 40 mg HS PO 01/23/25 22:00 01/24/25 21:45 40 MG Losartan Potassium 50 mg DAILY PO 01/24/25 10:00 01/25/25 10:09 50 MG Gabapentin 300 mg BID PO 01/23/25 22:00 01/25/25 10:10 300 MG Clopidogrel Bisulfate 75 mg DAILY PO 01/24/25 10:00 01/25/25 10:10 75 MG Diagnostic Test (Pha) 1 strip ACHS 01/23/25 22:00 01/25/25 06:20 1 STRIP Insulin Human Regular ACHS SC 01/23/25 22:00 01/25/25 06:18 2 UNITS Dextrose 50 ml UD PRN IV 01/23/25 19:45 Ondansetron HCl 4 mg Q4HP PRN IV 01/23/25 19:45 Enoxaparin Sodium 40 mg DAILY SC 01/24/25 10:00 01/25/25 10:08 40 MG Acetaminophen 650 mg Q6HP PRN PO 01/23/25 19:45 Nitroglycerin 0.4 mg Q5MINP PRN SL 01/23/25 19:45 Morphine Sulfate 2 mg Q30M PRN IV 01/23/25 19:45 Furosemide 40 mg BIDD IV 01/24/25 18:00 01/25/25 06:15 40 MG Empaglifozin 10 mg DAILY PO 01/25/25 10:00 01/25/25 10:08 10 MG Metoprolol Succinate 25 mg DAILY PO 01/25/25 10:00 01/25/25 10:12 25 MG Laboratory Results Laboratory Tests 01/25/25 05:45 Chemistry Test 01/25/25 05:45 Albumin 4.1 g/dL (3.2-4.8) Calcium Level 8.8 mg/dL (8.7-10.4) Total Protein 7.1 g/dL (5.7-8.2) LFT Test 01/25/25 05:45 Alanine Aminotransferase (ALT) 29 U/L (7-40) Alkaline Phosphatase 109 U/L (46-116) Aspartate Amino Transferase (AST) 24 U/L (13-40) Total Bilirubin 0.5 mg/dL (0.2-1.0) Labs and/or images reviewed: Labs reviewed by me, Image(s) reviewed by me Assessment/Plan Assessment/Plan Unspecified congestive heart failure time: Consult by Patient Services Technician Dr. Lara appreciated Bilateral community-acquired pneumonia Gram-positive versus Gram-negative: IV Rocephin, p.o. doxycycline NSTEMI, likely type 2 secondary to above Presence of micra leadless pacemaker ([employer]) Status post Watchman device implantation ([employer]) Unspecified atrial fibrillation/atrial flutter, controlled rate (on Plavix therapy) Hypertension Dyslipidemia Insulin-dependent diabetes: Insulin sliding scale Recurrent falls Low back pain secondary to mechanical fall two months ago: CT LS spine, [place] DNR per patient's wishes Time spent 65 minutes Advanced care planning time 20 minutes Patient is full code Plan discussed with: Patient My Orders Orders - ANDREW ORTIZ MD Procedure Category Date Status Time Code Status CODE 01/25/25 Transmitted 10:40 Date of Service: Jan 25, 2025 Billing Provider: ANDREW ORTIZ MD Common Visit Codes: [id number] INP/OBS CARE(HIGH) ANDREW ORTIZ MD Jan 25, 2025 10:51
--- NOTE | 2025-01-25 12:06 | ECG ---
[facility] Test Date: 2025-01-23 Test Time: 18:48:37 Pat Name: DAVID ROLDAN Department: ED Room: 0277T Gender: F Wellness Coordinator: BRENT : 1945 Requested By: SARAH MARX Order Number: [id number] Reading MD: Measurements Intervals [place] Rate: 60 P: 0 [place]: 220 QRS: 50 QRSD: 147 T: 251 QT: 487 QTc: 487 Interpretive Statements Ventricular-paced complexes No further analysis attempted due to paced rhythm Please click the below link to view image of tracing.
--- NOTE | 2025-01-25 12:08 | ECG ---
[facility] Test Date: 2025-01-23 Test Time: 16:49:32 Pat Name: DAVID ROLDAN Department: ED Room: 0277T Gender: F Performance Analyst: james : 1945 Requested By: SARAH MARX Order Number: [id number] Reading MD: Measurements Intervals [place] Rate: 60 P: 0 [place]: 0 QRS: 55 QRSD: 144 T: 243 QT: 477 QTc: 477 Interpretive Statements Afib/flut and V-paced complexes No further analysis attempted due to paced rhythm Please click the below link to view image of tracing.
[2025-01-25] MEDS: HYDROcodone-ACET 5/325MG TAB PO PRN (12:47)
--- NOTE | 2025-01-25 13:07 | DVHPN2 ---
Consult Progress Note Date Seen: Jan 25, 2025 Subjective Review of Systems: CVS:Normal, RESPIRATORY:Normal, MSK:Abnormal, NEURO:Normal Objective vital signs Vital Sign Date Time Temp Pulse Resp B/P (MAP) Pulse Ox O2 Delivery O2 Flow Rate FiO2 01/25/25 12:41 97.8 60 17 136/78 (97) 97 97.8 01/24/25 20:00 Room Air* 0 21 Total Intake and Output 01/24/25 01/24/25 01/25/25 15:00 23:00 07:00 Intake Total 750 ml 1100 ml Output Total 3000 ml 1700 ml Balance -2250 ml -600 ml medications Current Medications Medications Dose Ordered Sig/Lisa Route Start Time Stop Time Status Last Admin Dose Admin Aspirin 162 mg DAILY PO 01/24/25 10:00 01/25/25 10:08 162 MG Atorvastatin Calcium 40 mg HS PO 01/23/25 22:00 01/24/25 21:45 40 MG Losartan Potassium 50 mg DAILY PO 01/24/25 10:00 01/25/25 10:09 50 MG Gabapentin 300 mg BID PO 01/23/25 22:00 01/25/25 10:10 300 MG Clopidogrel Bisulfate 75 mg DAILY PO 01/24/25 10:00 01/25/25 10:10 75 MG Diagnostic Test (Pha) 1 strip ACHS 01/23/25 22:00 01/25/25 11:30 1 STRIP Insulin Human Regular ACHS SC 01/23/25 22:00 01/25/25 12:37 6 UNITS Dextrose 50 ml UD PRN IV 01/23/25 19:45 Ondansetron HCl 4 mg Q4HP PRN IV 01/23/25 19:45 Enoxaparin Sodium 40 mg DAILY SC 01/24/25 10:00 01/25/25 10:08 40 MG Acetaminophen 650 mg Q6HP PRN PO 01/23/25 19:45 Nitroglycerin 0.4 mg Q5MINP PRN SL 01/23/25 19:45 Morphine Sulfate 2 mg Q30M PRN IV 01/23/25 19:45 Furosemide 40 mg BIDD IV 01/24/25 18:00 01/25/25 06:15 40 MG Empaglifozin 10 mg DAILY PO 01/25/25 10:00 01/25/25 10:08 10 MG Metoprolol Succinate 25 mg DAILY PO 01/25/25 10:00 01/25/25 10:12 25 MG Acetaminophen/ Hydrocodone Bitart 1 tab Q6HPRN PRN PO 01/25/25 10:45 01/25/25 12:47 1 TAB Ceftriaxone Sodium 50 ml @ 100 mls/hr DAILY@09 IV 01/26/25 09:00 Doxycycline Monohydrate 100 mg Q12HR PO 01/25/25 22:00 Examination: LUNGS:Normal, CVS:Normal, NEURO:Normal laboratory and microbiology Laboratory Tests 01/25/25 05:45 Test 01/25/25 05:45 Range/Units Serum Glucose 114 H 74-106 mg/dL Problem List/Assessment/Plan Problem List/Assessment/Plan De Michael decompensated HFrEF, NYHA Class III Rule out coronary artery disease NSTEMI, likely type 2 secondary to above Presence of micra leadless pacemaker ([employer]) Status post Watchman device implantation ([employer]) Unspecified atrial fibrillation/atrial flutter, controlled rate (on Plavix therapy) Hypertension Dyslipidemia Insulin-dependent diabetes mellitus Plan/Recommendation (Dr. Lara) We will continue further cardiac evaluation with a transthoracic echocardiogram to rule out structural heart disease. Preliminary report revealed HFrEF. Scheduled for a cardiac catheterization and coronary angiogram for 01/26/[address] Lara. All risks and benefits of the procedure were discussed with the patient who agrees to proceed with intervention. All questions answered. In the meantime, continue GDMT for HFrEF and titrate as tolerated. Continue preload and afterload reduction including strict I&Os, daily weight, fluid restrictions. Continue single-antiplatelet therapy given history of A-fib/A-flutter status post watchman device implantation. Continue DVT/VTE prophylaxis. Monitor ECG changes closely and notify. Thank you for allowing us to participate in this patient's care. Please call if you have any questions or concerns. This medical document was created using an electronic medical record system with voice recognition software and computerized dictation system. Although this document has been carefully reviewed, there might still be some phonetic and typographical errors. Occasional wrong-word or ``sound-alike substitutions may have occurred due to the inherent limitations of voice recognition software. These areas are purely typographical due to imperfections of the software programs and do not reflect any compromise in the patient's medical care. Please read the chart carefully and recognize, using context, where these substitutions have occurred. Plan discussed with: Patient, Other Date of Service: Jan 25, 2025 Billing Provider: HIEU ANN Cardiology Common Codes: [id number] HOSP CARE(High HIEU ANN Jan 25, 2025 13:07
--- NOTE | 2025-01-25 14:10 | DVH ---
CT LS SPINE WO CONTRAST Indication: low back Pain status post mechanical fall two months ago EXAM DATE: 01/25/2025 11:18 AM COMPARISON: None TECHNIQUE: CT of the lumbar spine without intravenous contrast. RADIATION DOSE: CTDIvol: 17.08 mGy, DLP: 17.08 mGy*cm FINDINGS: Compression deformity of the L3 vertebral body with 30% loss height that appears subacute in appearan ce. Moderate multilevel lumbar disc space narrowing, which is most pronounced at L3-4. Alignment pre served. Prominent anterior osteophytosis. Vacuum disc phenomena at L3-4 moderate lumbar facet hyper trophic changes. Bilateral pleural effusions, [id number]-left. Cardiomegaly. Aortic atherosclerotic disease. Colonic diverticular disease. IMPRESSION: L3 compression deformity with 30% loss height that appears subacute in appearance. Recommend MRI lum bar spine to further characterize. Moderate lumbar degenerative disc disease. Other findings as described
[2025-01-25] MEDS: DOXYCYCLINE 100 MG TAB/CAP PO SCH (21:58)
[2025-01-26] VITALS (10 sets, daily range): BP systolic 116–174; BP diastolic 70–82; PULSE 57–64; RESP 14–20; TEMP 97.6–98.8; O2SAT 90–97
[2025-01-26 06:40] LABS: Hematocrit 34.9 % (36.0-46.0); Hemoglobin 11.4 g/dL (12.2-16.2); Mean Corpuscular Hemoglobin 25.5 pg (28.0-32.0); Mean Corpuscular Volume 77.8 fL (80.0-100.0); Nucleated Red Blood Cells % 0.0 %
[2025-01-26 06:46] LABS: Anion Gap 12 (5-15); Carbon Dioxide 28 mmol/L (20-31); Sodium 137 mmol/L (136-145)
[2025-01-26 06:47] LABS: Calcium 8.9 mg/dL (8.7-10.4)
[2025-01-26 06:49] LABS: Chloride 97 mmol/L (98-107); Potassium 3.3 mmol/L (3.5-5.1)
[2025-01-26 06:52] LABS: BUN/Creatinine Ratio 17.3 (10.0-20.0); Blood Urea Nitrogen 22 mg/dL (9-23)
[2025-01-26 06:53] LABS: Glucose 162 mg/dL (74-106)
[2025-01-26 07:00] LABS: INR 1.06 (0.9-1.15); Partial Thromboplastin Time 28.1 SEC (24.5-34.5); Prothrombin Time 11.2 sec (9.3-11.8)
[2025-01-26] MEDS: POTASSIUM CHL 20 Meq TABLET PO ONE (08:49)
--- NOTE | 2025-01-26 10:19 | DVHPN2 ---
Reviewed: Care Plan, H&P, Labs, Medications, Previous Orders, Radiology Changes from previous H/P or p: No Changes Objective Vitals Vital Signs Date Time Temp Pulse Resp B/P (MAP) Pulse Ox O2 Delivery O2 Flow Rate FiO2 01/26/25 08:47 98.3 58 16 125/70 (88) 93 98.3 01/26/25 07:30 Room Air* 0 21 Intake/Output Intake and Output 01/26/25 07:00 Intake Total 550 ml Output Total 2800 ml Balance -2250 ml Intake Oral 400 ml IV Total 150 ml Output Urine Total 2800 ml Medications Current Medications Medications Dose Ordered Sig/Lisa Route Start Time Stop Time Status Last Admin Dose Admin Aspirin 162 mg DAILY PO 01/24/25 10:00 01/26/25 08:48 162 MG Atorvastatin Calcium 40 mg HS PO 01/23/25 22:00 01/25/25 21:57 40 MG Losartan Potassium 50 mg DAILY PO 01/24/25 10:00 01/26/25 08:45 50 MG Gabapentin 300 mg BID PO 01/23/25 22:00 01/26/25 08:45 300 MG Clopidogrel Bisulfate 75 mg DAILY PO 01/24/25 10:00 01/26/25 08:45 75 MG Diagnostic Test (Pha) 1 strip ACHS 01/23/25 22:00 01/26/25 06:55 1 STRIP Insulin Human Regular ACHS SC 01/23/25 22:00 01/25/25 22:07 6 UNITS Dextrose 50 ml UD PRN IV 01/23/25 19:45 Ondansetron HCl 4 mg Q4HP PRN IV 01/23/25 19:45 Enoxaparin Sodium 40 mg DAILY SC 01/24/25 10:00 01/25/25 10:08 40 MG Acetaminophen 650 mg Q6HP PRN PO 01/23/25 19:45 Nitroglycerin 0.4 mg Q5MINP PRN SL 01/23/25 19:45 Morphine Sulfate 2 mg Q30M PRN IV 01/23/25 19:45 Furosemide 40 mg BIDD IV 01/24/25 18:00 01/25/25 18:18 40 MG Empaglifozin 10 mg DAILY PO 01/25/25 10:00 01/26/25 08:45 10 MG Metoprolol Succinate 25 mg DAILY PO 01/25/25 10:00 01/26/25 08:44 25 MG Acetaminophen/ Hydrocodone Bitart 1 tab Q6HPRN PRN PO 01/25/25 10:45 01/25/25 12:47 1 TAB Ceftriaxone Sodium 50 ml @ 100 mls/hr DAILY@09 IV 01/26/25 09:00 01/26/25 08:41 100 MLS/HR Doxycycline Monohydrate 100 mg Q12HR PO 01/25/25 22:00 01/26/25 08:45 100 MG Laboratory Results Laboratory Tests 01/26/25 06:06 Chemistry Test 01/26/25 06:06 Calcium Level 8.9 mg/dL (8.7-10.4) Coagulation Test 01/26/25 06:06 Prothrombin Time 11.2 sec (9.3-11.8) Prothrombin Time INR 1.06 (0.9-1.15) Activated Partial Thromboplast Time 28.1 SEC (24.5-34.5) Labs and/or images reviewed: Labs reviewed by me, Image(s) reviewed by me Assessment/Plan Assessment/Plan Unspecified congestive heart failure time: Consult by Oil Well Service Operator Dr. Lara appreciated Bilateral community-acquired pneumonia Gram-positive versus Gram-negative: IV Rocephin, p.o. doxycycline NSTEMI, likely type 2 secondary to above Presence of micra leadless pacemaker ([employer]) Status post Watchman device implantation ([employer]) Unspecified atrial fibrillation/atrial flutter, controlled rate (on Plavix therapy) Hypertension Dyslipidemia Insulin-dependent diabetes: Insulin sliding scale Recurrent falls Low back pain secondary to mechanical fall two months ago: CT LS spine, [place] DNR per patient's wishes Patient getting left heart catheterization by Dr. Lara today Time spent 65 minutes Advanced care planning time 20 minutes Patient is full code Plan discussed with: Patient My Orders Orders - ANDREW ORTIZ MD Procedure Category Date Status Time Code Status CODE 01/25/25 Transmitted 10:40 Hydrocodone-Acet PHA 01/25/25 In Process 5/325mg Tab ([place] 10:45 Ls Spine Wo Contrast CT 01/25/25 Resulted 10:51 Ceftriaxone 1gm/50ml PHA 01/26/25 In Process (Rocephin) 09:00 Doxycycline Tablet PHA 01/25/25 In Process (Vibramycin Tablet) 22:00 Date of Service: Jan 26, 2025 Billing Provider: ANDREW ORTIZ MD Common Visit Codes: [id number] INP/OBS CARE(HIGH) ANDREW ORTIZ MD Jan 26, 2025 10:19
--- NOTE | 2025-01-26 13:00 | DVHSR ---
APPROVED REPORT EXAM: Two-dimensional and M-mode echocardiogram with Doppler and color Doppler. Blood Pressure: 159/81 mmHg INDICATION Heart Failure RISK FACTORS Height: 5', Weight: 120 DIMENSIONS LVDd5.7 (3.8-5.7cm)LA (2D)5.4 (1.9-4.0cm)Aortic Root3.5 (2.0-3.7cm) LVDs4.7 (2.5-4.0cm)LA (MM) (1.9-4.0cm)Aortic Cusp Exc1.2 (1.5-2.0cm) EF (%) 35.0 (55-70%)Rt. Atrium (1.9-4.0cm)Asc. Aorta3.6 cm IVSd1.0 (0.7-1.1cm)RV (D) (1.8-2.4cm) PWd0.8 (0.7-1.1cm) Mitral Valve MitralMitral Stenosis E wave1.05m/sMV Mean GR.mmHg A wave0.50m/sMV Peak GR.mmHg E/A ratio2.12D MVAcm2 DECEL [id number] 1/2 Timems Aortic Valve Aortic ValveAortic Stenosis V10.74m/Ramakrishna Mean GR.3mmHg V21.21m/Ramakrishna Peak GR.6mmHg LVOT Diameter2.1 (1.8-2.4cm)Doppler AVA2.12cm2 AI P 1/2 Fwzv766.38ms Pulmonic Valve V20.81m/s Tricuspid Valve TR Velocity2.89m/s [id number] Conclusion Technically good study. Undetermined rhythm. Notable left atrial enlargement with concentric LVH. Mild dilation of the sinuses of Valsalva. Conc entric LVH. Valves appear to be structurally normal. Left ventricular systolic performance is diminished. EF is approximately 25-30%. Anteroseptal akine sis underlying global hypokinesis. Moderate to severe mitral insufficiency. [id number] aortic insufficiency. Moderate to severe tricuspid regurgitation. Moderate pulmonic insufficiency. No pericardial effusion masses or vegetations discernible. Mobile study is negative for crossover.
[2025-01-26] MEDS: IODIXANOL 320MG/ML 100ML BTL IV ONE (17:58)
[2025-01-26] MEDS: MIDAZOLAM HCL 2MG/2ML 2ml VIAL (1mg/ml) ONE (17:59)
[2025-01-26] MEDS: fentaNYL CITRATE 100 MCG/2 ML VL ONE (17:59)
[2025-01-26] MEDS: ANGIOMAX 250 MG VIAL IV ONE (17:59)
[2025-01-26] MEDS: HEPARIN SODIUM (PORCINE) 5000 UNITS/ML 1ML VIAL ONE (17:59)
[2025-01-26] MEDS: LIDOCAINE 2%HCL (LOCAL ANESTH.) INJ 20ML MDV ONE (17:59)
[2025-01-26] MEDS: VERAPAMIL 2.5MG/ML INJ 2ML VIAL IV ONE (17:59)
[2025-01-26] MEDS: SODIUM CHL 0.9% 0 ML ONE (17:59)
[2025-01-26] MEDS: NITROGLYCERIN 50MG/250ML 250 ML IV ONE (18:06)
--- NOTE | 2025-01-26 18:49 | DVHOP2 ---
Operative Report - 2 Report Details Date: 01/26/25 Preop Diagnosis: CAD. Postop Diagnosis: CAD Surgeon: Adilson Lara MD Anesthesiologist: Conscious sedation Anesthesia: Mac, Local Consent: The patient was informed of the risks and benefits of the procedure. These include but are not limited to complications of anesthesia, postoperative infection, incomplete relief of symptoms, recurrence of symptoms, damage to blood vessels, nerves and tendons, deep venous thrombosis, pulmonary embolism and possible need for repeat surgery in the future. Complications: No complications Findings: CAD Indications for Surgery: Chest pain Name of Procedure Performed We will talk catheterization. Bilateral cine coronary angiography. Left ventriculography. Procedure Details Procedure Details: Pravachol seizure into the fall consulted. The patient's [place] initial function follow up as six [place] sheath into the right BB and reports a tiger catheter was used for ventriculography gain she both coronary ostia without complications. Hemodynamics: Aortic blood pressure was 110/70 and diastolic pressure is five. The initial gradient across pullback. Coronary anatomy: The RCA is a large vessel it has moderate plaquing in its proximal portion. The crux of the bifurcation of the PDA and posterolateral has a 90% stenosis followed by severe disease segmental posterolateral magnesium% and ostial PDA 95% as well. The mid PDA as an outpatient. The left maintenance Avastin 52 cc proceed stenosis. The proximal LAD has an 80 90% stenosis. The circumflex at its bifurcation the marginal branch as a 95% stenosis. The mid circumflex proper has a 95% stenosis. Ventriculogram area protection 55% approximately. Impression: Normal left ventricular end-diastolic pressure ratio with normal ejection fraction. Three-vessel coronary artery disease. Recommendations: Suggest coronary bypass grafting. Consider transcutaneous revascularization the patient is considered to be frail. Condition Good Disposition Still a Patient Date of Service: Jan 26, 2025 Billing Provider: ADILSON LARA Sr., MD Cardiology Common Codes: [id number] INP/OBS CARE (High) Cardiology Procedure Codes: [id number] HEART CATH W/INTRA INJ ADILSON LARA Sr., MD Jan 26, 2025 18:49
--- NOTE | 2025-01-26 19:14 | DVHPN2 ---
Consult Progress Note Date Seen: Jan 26, 2025 Subjective Review of Systems: CVS:Normal, RESPIRATORY:Normal, NEURO:Normal Objective vital signs Vital Sign Date Time Temp Pulse Resp B/P (MAP) Pulse Ox O2 Delivery O2 Flow Rate FiO2 01/26/25 18:59 61 14 167/74 (105) 94 01/26/25 12:43 97.9 97.9 01/26/25 07:30 Room Air* 0 21 Total Intake and Output 01/25/25 01/25/25 01/26/25 15:00 23:00 07:00 Intake Total 150 ml 400 ml 0 ml Output Total 800 ml 2000 ml Balance 150 ml -400 ml -2000 ml medications Current Medications Medications Dose Ordered Sig/Lisa Route Start Time Stop Time Status Last Admin Dose Admin Aspirin 162 mg DAILY PO 01/24/25 10:00 01/26/25 08:48 162 MG Atorvastatin Calcium 40 mg HS PO 01/23/25 22:00 01/25/25 21:57 40 MG Losartan Potassium 50 mg DAILY PO 01/24/25 10:00 01/26/25 08:45 50 MG Gabapentin 300 mg BID PO 01/23/25 22:00 01/26/25 08:45 300 MG Clopidogrel Bisulfate 75 mg DAILY PO 01/24/25 10:00 01/26/25 08:45 75 MG Diagnostic Test (Pha) 1 strip ACHS 01/23/25 22:00 01/26/25 17:16 1 STRIP Insulin Human Regular ACHS SC 01/23/25 22:00 01/25/25 22:07 6 UNITS Dextrose 50 ml UD PRN IV 01/23/25 19:45 Ondansetron HCl 4 mg Q4HP PRN IV 01/23/25 19:45 Enoxaparin Sodium 40 mg DAILY SC 01/24/25 10:00 01/25/25 10:08 40 MG Acetaminophen 650 mg Q6HP PRN PO 01/23/25 19:45 Nitroglycerin 0.4 mg Q5MINP PRN SL 01/23/25 19:45 Morphine Sulfate 2 mg Q30M PRN IV 01/23/25 19:45 Furosemide 40 mg BIDD IV 01/24/25 18:00 01/25/25 18:18 40 MG Empaglifozin 10 mg DAILY PO 01/25/25 10:00 01/26/25 08:45 10 MG Metoprolol Succinate 25 mg DAILY PO 01/25/25 10:00 01/26/25 08:44 25 MG Acetaminophen/ Hydrocodone Bitart 1 tab Q6HPRN PRN PO 01/25/25 10:45 01/25/25 12:47 1 TAB Ceftriaxone Sodium 50 ml @ 100 mls/hr DAILY@09 IV 01/26/25 09:00 01/26/25 08:41 100 MLS/HR Doxycycline Monohydrate 100 mg Q12HR PO 01/25/25 22:00 01/26/25 08:45 100 MG Examination: LUNGS:Normal, CVS:Normal, NEURO:Normal laboratory and microbiology Laboratory Tests 01/26/25 06:06 Test 01/26/25 06:06 Range/Units Serum Glucose 162 H 74-106 mg/dL Problem List/Assessment/Plan Problem List/Assessment/Plan NSTEMI with multivessel coronary artery disease [place] decompensated HFrEF, NYHA Class III Presence of micra leadless pacemaker ([employer]) Status post Watchman device implantation ([employer]) Unspecified atrial fibrillation/atrial flutter, controlled rate (on Plavix therapy at home) Hypertension Dyslipidemia Insulin-dependent diabetes mellitus Plan/Recommendation (Dr. Lara) Case discussed in full detail with Dr. Lara. Cardiac catheterization revealed three vessel coronary artery disease (see surgical report). A transthoracic echocardiogram revealed LVEF 25-30% with anteroseptal akinesis and underlying global hypokinesis. Recommendations are to transfer to [facility] for CABG evaluation. In the meantime, initiate heparin drip per pharmacy protocol, continue single-antiplatelet therapy with ASA, lipid lowering agent, and continue GDMT for HFrEF with titration as tolerated. Continue preload and afterload reduction including strict I&Os, daily weight, fluid restrictions. Monitor ECG changes closely and notify. Further recommendations per clinical course. Thank you for allowing us to participate in this patient's care. Please call if you have any questions or concerns. Critical care time: 40 min. This medical document was created using an electronic medical record system with voice recognition software and computerized dictation system. Although this document has been carefully reviewed, there might still be some phonetic and typographical errors. Occasional wrong-word or ``sound-alike substitutions may have occurred due to the inherent limitations of voice recognition software. These areas are purely typographical due to imperfections of the software programs and do not reflect any compromise in the patient's medical care. Please read the chart carefully and recognize, using context, where these substitutions have occurred. Plan discussed with: Patient, Other Date of Service: Jan 26, 2025 Billing Provider: HIEU ANN Cardiology Common Codes: [id number] CARE 30-74 MIN HIEU ANN Jan 26, 2025 19:14
[2025-01-26] MEDS: HEPARIN SODIUM (PORCINE) 5000 UNITS/ML 1ML VIAL IV ONE (21:05)
[2025-01-26] MEDS: HEPARIN DRIP/D5W 100UNITS/ML 250 ML IV SCH (21:19)
[2025-01-27] VITALS (8 sets, daily range): BP systolic 109–140; BP diastolic 61–78; PULSE 53–74; RESP 14–20; TEMP 97–100.4; O2SAT 92–100
[2025-01-27 03:30] LABS: Hematocrit 34.9 % (36.0-46.0); Hemoglobin 11.3 g/dL (12.2-16.2); Mean Corpuscular Hemoglobin 25.6 pg (28.0-32.0); Mean Corpuscular Volume 78.8 fL (80.0-100.0); Nucleated Red Blood Cells % 0.0 %
[2025-01-27 03:43] LABS: INR 1.05 (0.9-1.15); Partial Thromboplastin Time 39.1 SEC (24.5-34.5); Prothrombin Time 11.1 sec (9.3-11.8)
[2025-01-27 03:48] LABS: Alanine Aminotransferase 21 U/L (7-40); Albumin 3.9 g/dL (3.2-4.8); Alkaline Phosphatase 105 U/L (46-116); Anion Gap 10 (5-15); BUN/Creatinine Ratio 22.4 (10.0-20.0); Calcium 9.1 mg/dL (8.7-10.4); Carbon Dioxide 27 mmol/L (20-31); Chloride 101 mmol/L (98-107); Glucose 103 mg/dL (74-106); Magnesium 2.1 mg/dL (1.6-2.6); Potassium 3.7 mmol/L (3.5-5.1); Sodium 138 mmol/L (136-145); Total Protein 7.2 g/dL (5.7-8.2)
[2025-01-27 03:49] LABS: Bilirubin, Total 0.5 mg/dL (0.2-1.0); Blood Urea Nitrogen 24 mg/dL (9-23)
[2025-01-27] MEDS: HEPARIN DRIP/D5W 100UNITS/ML 250 ML IV SCH (04:23)
--- NOTE | 2025-01-27 11:38 | DVHPN2 ---
Reviewed: Care Plan, H&P, Labs, Medications, Previous Orders, Radiology Changes from previous H/P or p: No Changes Objective Vitals Vital Signs Date Time Temp Pulse Resp B/P (MAP) Pulse Ox O2 Delivery O2 Flow Rate FiO2 01/27/25 09:09 100.4 68 14 140/73 (95) 92 100.4 01/27/25 08:00 Room Air* 0 21 Intake/Output Intake and Output 01/27/25 07:00 Intake Total 967 ml Balance 967 ml Intake Oral 850 ml IV Total 117 ml # Voids 2 Medications Current Medications Medications Dose Ordered Sig/Lisa Route Start Time Stop Time Status Last Admin Dose Admin Atorvastatin Calcium 40 mg HS PO 01/23/25 22:00 01/26/25 21:40 40 MG Losartan Potassium 50 mg DAILY PO 01/24/25 10:00 01/27/25 08:34 50 MG Gabapentin 300 mg BID PO 01/23/25 22:00 01/27/25 08:33 300 MG Diagnostic Test (Pha) 1 strip ACHS 01/23/25 22:00 01/27/25 06:22 1 STRIP Insulin Human Regular ACHS SC 01/23/25 22:00 01/27/25 06:21 3 UNITS Dextrose 50 ml UD PRN IV 01/23/25 19:45 Ondansetron HCl 4 mg Q4HP PRN IV 01/23/25 19:45 Acetaminophen 650 mg Q6HP PRN PO 01/23/25 19:45 Nitroglycerin 0.4 mg Q5MINP PRN SL 01/23/25 19:45 Morphine Sulfate 2 mg Q30M PRN IV 01/23/25 19:45 Furosemide 40 mg BIDD IV 01/24/25 18:00 01/27/25 05:34 40 MG Empaglifozin 10 mg DAILY PO 01/25/25 10:00 01/27/25 08:34 10 MG Metoprolol Succinate 25 mg DAILY PO 01/25/25 10:00 01/27/25 08:33 25 MG Acetaminophen/ Hydrocodone Bitart 1 tab Q6HPRN PRN PO 01/25/25 10:45 01/27/25 03:08 1 TAB Ceftriaxone Sodium 50 ml @ 100 mls/hr DAILY@09 IV 01/26/25 09:00 01/27/25 08:31 100 MLS/HR Doxycycline Monohydrate 100 mg Q12HR PO 01/25/25 22:00 01/27/25 08:34 100 MG Aspirin 81 mg DAILY PO 01/27/25 10:00 01/27/25 08:34 81 MG Heparin Sodium/ Dextrose 250 ml @ 9 mls/hr Q24H IV 01/27/25 04:15 01/27/25 04:23 9 MLS/HR Laboratory Results Laboratory Tests 01/27/25 03:00 Chemistry Test 01/27/25 03:00 Albumin 3.9 g/dL (3.2-4.8) Calcium Level 9.1 mg/dL (8.7-10.4) Magnesium Level 2.1 mg/dL (1.6-2.6) Total Protein 7.2 g/dL (5.7-8.2) Coagulation Test 01/27/25 03:00 Prothrombin Time 11.1 sec (9.3-11.8) Prothrombin Time INR 1.05 (0.9-1.15) Activated Partial Thromboplast Time 39.1 SEC (24.5-34.5) H LFT Test 01/27/25 03:00 Alanine Aminotransferase (ALT) 21 U/L (7-40) Alkaline Phosphatase 105 U/L (46-116) Aspartate Amino Transferase (AST) 17 U/L (13-40) Total Bilirubin 0.5 mg/dL (0.2-1.0) Labs and/or images reviewed: Labs reviewed by me, Image(s) reviewed by me Assessment/Plan Assessment/Plan Three-way coronary artery disease by left heart catheterization by Dr. Lara 01/26/2025 advised transferred to higher level of care for CABG and the patient is willing, ced Hu at bed side Unspecified congestive heart failure time: Consult by Dental Ceramist Dr. Lara appreciated Bilateral community-acquired pneumonia Gram-positive versus Gram-negative: IV Rocephin, p.o. doxycycline NSTEMI, likely type 2 secondary to above Presence of micra leadless pacemaker ([employer]) Status post Watchman device implantation ([employer]) Unspecified atrial fibrillation/atrial flutter, controlled rate (on Plavix therapy) Hypertension Dyslipidemia Insulin-dependent diabetes: Insulin sliding scale Recurrent falls Low back pain secondary to mechanical fall two months ago: CT LS spine, [place] DNR per patient's wishes Time spent 65 minutes Advanced care planning time 20 minutes Patient is full code Plan discussed with: Patient Date of Service: Jan 27, 2025 Billing Provider: ANDREW ORTIZ MD Common Visit Codes: [id number] INP/OBS CARE(HIGH) ANDREW ORTIZ MD Jan 27, 2025 11:38
--- NOTE | 2025-01-27 11:42 | DVHDS2 ---
Discharge Summary Date of Admission Jan 23, 2025 at 19:35 Date of Discharge: Jan 27, 2025 Admitting Diagnosis Chest pain shortness of breath Wounds: Left heart catheterization Labs/Diagnostic Data: Laboratory Results Test 01/27/25 11:08 01/27/25 03:00 01/24/25 05:29 01/23/25 19:36 POC Glucose 294 mg/dl (70-106) White Blood Count 9.5 10^3/uL (4.4-10.8) Red Blood Count 4.43 10^6/uL (4.0-5.20) Hemoglobin 11.3 g/dL (12.2-16.2) Hematocrit 34.9 % (36.0-46.0) Mean Corpuscular Volume 78.8 fL (80.0-100.0) Mean Corpuscular Hemoglobin 25.6 pg (28.0-32.0) Mean Corpuscular Hemoglobin Concent 32.5 g/dL (32.0-36.0) Red Cell Distribution Width 15.7 % (11.8-14.3) Platelet Count 324 10^3/uL (140-450) Mean Platelet Volume 8.5 fL (6.9-10.8) Neutrophils (%) (Auto) 70.3 % (37.0-80.0) Lymphocytes (%) (Auto) 13.8 % (10.0-50.0) Monocytes (%) (Auto) 14.6 % (0.0-12.0) Eosinophils (%) (Auto) 0.8 % (0.0-7.0) Basophils (%) (Auto) 0.5 % (0.0-2.0) Neutrophils # (Auto) 6.7 10 ^3/uL (1.6-8.6) Lymphocytes # (Auto) 1.3 10 ^3/uL (0.4-5.4) Monocytes # (Auto) 1.4 10 ^3/uL (0-1.3) Eosinophils # (Auto) 0.1 10 ^3/uL (0-0.8) Basophils # (Auto) 0 10 ^3/uL (0-0.2) Nucleated Red Blood Cells 0.0 % Prothrombin Time 11.1 sec (9.3-11.8) Prothrombin Time INR 1.05 (0.9-1.15) Activated Partial Thromboplast Time 39.1 SEC (24.5-34.5) Sodium Level 138 mmol/L (136-145) Potassium Level 3.7 mmol/L (3.5-5.1) Chloride Level 101 mmol/L (98-107) Carbon Dioxide Level 27 mmol/L (20-31) Anion Gap 10 (5-15) Blood Urea Nitrogen 24 mg/dL (9-23) Creatinine 1.07 mg/dL (0.550-1.02) Glomerular Filtration Rate Calc 52 mL/min (>90) BUN/Creatinine Ratio 22.4 (10.0-20.0) Serum Glucose 103 mg/dL (74-106) Calcium Level 9.1 mg/dL (8.7-10.4) Magnesium Level 2.1 mg/dL (1.6-2.6) Total Bilirubin 0.5 mg/dL (0.2-1.0) Aspartate Amino Transferase (AST) 17 U/L (13-40) Alanine Aminotransferase (ALT) 21 U/L (7-40) Alkaline Phosphatase 105 U/L (46-116) Total Protein 7.2 g/dL (5.7-8.2) Albumin 3.9 g/dL (3.2-4.8) Hemoglobin A1c 9.9 % A1C (<5.7) Triglycerides Level 69 mg/dL (< 150) Cholesterol Level 95 mg/dL (< 200) LDL Cholesterol 36 mg/dL (< 100) HDL Cholesterol 52 mg/dL (40-59) Thyroid Stimulating Hormone (TSH) 1.52 uIU/mL (0.55-4.78) Troponin I High Sensitivity 74 ng/L (</=34) Test 01/23/25 16:23 B-Type Natriuretic Peptide 780.26 pg/mL (0-100) Other Laboratory Tests 01/27/25 03:00 Brief Hx & Hospital Course: CVA came in for chest pain and shortness of breaths found to have three-vessel coronary artery disease by left heart catheterization by Dr. Lara advised transferred to higher level of care for CABG. Patient has a history of Watchman device implantation and also history of micra leadless pacemaker. History of hypertension hypercholesterolemia diabetes and recurrent falls and low back pain. Also community-acquired pneumonia treated with the Rocephin and doxycycline Discussed with the patient on Rocephin was at the bedside and she is willing to be transferred to higher level of care for CABG. Social service consult placed Consults/Reason for consult Cardiology Dr. Lara Operations or Procedures Left heart catheterization Condition at Discharge: Fair Final Diagnosis/Problems List Three-way coronary artery disease by left heart catheterization by Dr. Lara 01/26/2025 advised transferred to higher level of care for CABG and the patient is willing, ced Hu at bed side Unspecified congestive heart failure time: Consult by Product Support Specialist Dr. Lara appreciated Bilateral community-acquired pneumonia Gram-positive versus Gram-negative: IV Rocephin, p.o. doxycycline NSTEMI, likely type 2 secondary to above Presence of micra leadless pacemaker ([employer]) Status post Watchman device implantation ([employer]) Unspecified atrial fibrillation/atrial flutter, controlled rate (on Plavix therapy) Hypertension Dyslipidemia Insulin-dependent diabetes: Insulin sliding scale Recurrent falls Low back pain secondary to mechanical fall two months ago: CT LS spine, [place] DNR per patient's wishes Discharge Disposition: Acute Care Facility Discharge Instruct/Medications Diet: Cardiac 2g Na,low cholest Activity: Light activity Follow Up/Referral: Per receiving hospital Medications: see list Scheduled Amlodipine Besylate (Amlodipine Besylate), 1 TAB PO DAILY, (Reported) Atorvastatin Calcium (Atorvastatin Calcium), 1 TAB PO QPM, (Reported) Clopidogrel Bisulfate (Clopidogrel), 1 TAB PO DAILY, (Reported) Dapagliflozin Propanediol (Farxiga), 1 TAB PO DAILY, (Reported) Gabapentin (Gabapentin), 1 CAP PO BID, (Reported) Insulin Glargine (Toujeo Max Solostar), UNITS SC UD, (Reported) Losartan Potassium (Losartan Potassium), 1 TAB PO DAILY, (Reported) Metformin Hydrochloride (Metformin Hcl), 1 TAB PO BID, (Reported) Tirzepatide (Mounjaro), 2.5 MG SC QWEEKLY, (Reported) 39 (Time taken for discharge summary 39 minutes) Discharge Statement: "Patient was advised to return to the ER or call 911 if any headaches, dizziness, shortness of breath, chest pain, abdominal pain, bleeding, fevers, or worsening of medical condition. Patient was counseled about treatment plan, medications, possible side effects, patientverbalized understanding. All questions were answered to the best of my ability. This discharge took greater then 30 minutes in planning, reviewing documentation, counseling the patient, and discussing with other team members." ASSESSMENT ASSESSMENT Hospital Course Unchanged Assessment Three-way coronary artery disease by left heart catheterization by Dr. Lara 01/26/2025 advised transferred to higher level of care for CABG and the patient is willing, ced Hu at bed side Unspecified congestive heart failure time: Consult by Product Support Specialist Dr. Lara appreciated Bilateral community-acquired pneumonia Gram-positive versus Gram-negative: IV Rocephin, p.o. doxycycline NSTEMI, likely type 2 secondary to above Presence of micra leadless pacemaker ([employer]) Status post Watchman device implantation ([employer]) Unspecified atrial fibrillation/atrial flutter, controlled rate (on Plavix therapy) Hypertension Dyslipidemia Insulin-dependent diabetes: Insulin sliding scale Recurrent falls Low back pain secondary to mechanical fall two months ago: CT LS spine, [place] DNR per patient's wishes Date of Service: Jan 27, 2025 Billing Provider: ANDREW ORTIZ MD Common Visit Codes: [id number] DISCH DAY >30min ANDREW ORTIZ MD Jan 27, 2025 11:42
[2025-01-27 14:07] LABS: INR 1.08 (0.9-1.15); Partial Thromboplastin Time 51.0 SEC (24.5-34.5); Prothrombin Time 11.4 sec (9.3-11.8)
--- NOTE | 2025-01-27 14:33 | CONS ---
Pharmacy Clinical Information: HEPARIN DRIP, ACS PROTOCOL @1147 APTT = 51.0 - NO BOLUS NO CHANGE NEXT APTT DRAW SCHEDULED @1800 PER RX PROTOCOL CONFIRMED AND READ BACK WITH RN [facility] RES[facility] Jan 27, 2025 14:33
[2025-01-27 18:45] LABS: INR 1.06 (0.9-1.15); Partial Thromboplastin Time 57.9 SEC (24.5-34.5); Prothrombin Time 11.2 sec (9.3-11.8)
== END 2025-01-27 23:58 | disposition short-term general hospital (02) | DRG 280 ==
LOC: ER 15:46 → OVERFLOW 19:35 → TELE-WESTW 01-24 04:30
PROVIDERS: ADMIT Family Medicine; ATTEND Family Medicine
PROC: 4A023N7 Measurement of Cardiac Sampling and Pressure, Left Heart, Percutaneous Approach (ICD-10-PCS; principal; 2025-01-26)
PROC: B211YZZ Fluoroscopy of Multiple Coronary Arteries using Other Contrast (ICD-10-PCS; 2025-01-26)
PROC: B215YZZ Fluoroscopy of Left Heart using Other Contrast (ICD-10-PCS; 2025-01-26)
DX: I25.10 Atherosclerotic heart disease of native coronary artery without angina pectoris (principal); I50.23 Acute on chronic systolic (congestive) heart failure; I21.A1 Myocardial infarction type 2; J15.69 Pneumonia due to other Gram-negative bacteria; J15.9 Unspecified bacterial pneumonia; I48.92 Unspecified atrial flutter; I11.0 Hypertensive heart disease with heart failure; Z66 Do not resuscitate; E11.9 Type 2 diabetes mellitus without complications; I48.0 Paroxysmal atrial fibrillation; E78.5 Hyperlipidemia, unspecified; E78.00 Pure hypercholesterolemia, unspecified; Z95.0 Presence of cardiac pacemaker; Z79.4 Long term (current) use of insulin; Z86.73 Personal history of transient ischemic attack (TIA), and cerebral infarction without residual deficits
CPT/HCPCS: 36415; 71045; 72131; 80048; 80053; 80061; 82962; 83036; 83735; 83880; 84443; 84484; 85025; 85610; 85730; 93005; 93306; 93458; 96374; G0378; J1815; J2250; Q9967